=== PATIENT | male | born 1940 | race African-American/Black ===

== ENCOUNTER 2019-09-01 10:48 | Inpatient (IN) | payer OTHER ==
[~2019-09-01] VITALS: Ht 172.7 cm; Wt 59.7 kg
[2019-09-01 10:49] VITALS: BP 178/80
[2019-09-01 12:11] LABS: ABSOLUTE NEUTROPHILS 7.3 thou/uL (1.4-8.2); BASOPHILS 0.2 % (0.0-2.0); EOSINOPHILS 1.6 % (0.0-3.0); HEMOGLOBIN 9.1 gm/dL (14.0-18.0); LYMPHOCYTES 23.1 % (24.0-44.0); MCHC 32.4 g/dL (28.0-37.0); MCV 83.3 fL (80.0-100.0); MONOCYTES 5.3 % (1.0-8.0); PLATELET COUNT 410 thou/uL (150-400); POLYS 69.8 % (36.0-66.0); RBC 3.36 mil/uL (4.50-6.00); RDW 15.2 % (10.5-14.5); WBC 10.5 thou/uL (4.0-11.0)
[2019-09-01 12:17] LABS: CREATININE 1.6 mg/dL (0.7-1.3); POTASSIUM 5.3 mmol/L (3.5-5.1)
[2019-09-01 12:21] LABS: CALCIUM 9.3 mg/dL (8.5-10.1)
--- NOTE | 2019-09-01 12:40 | NUR ---
RADIOLOGY HERE TO TAKE ORDERED EXAM
--- NOTE | 2019-09-01 12:45 | NUR ---
PT. TO ER TODAY WITH HIS DAUGHTER WHO REPORTS PT. HAS BEEN DEMONSTRATING S/S OF DEMENTIA. PT. DAUGHTER INFORMS PT. LIVES WITH HER AT HER HOME. PT. HAS BEEN WAKING EARLY AND TAKING THE BUS TO VARIOUS PLACES. PT. HAS BEEN FOUND WANDERING AND WITHOUT APPROPRIATE CLOTHING FOR THE CURRENT WEATHER. PT. DAUGHTER INFORMS PT. WAS HOSPITALIZED AT [facility] WITH A DX OF PNEUMONIA AND RELEASED. PRIOR TO ARRIVING TO [place], PT. WAS HOSPITALIZED, AND WENT TO REHAB. FOR A CVA, TIMELINE UNKNOWN. PT. DAUGHTER FOUND PT. IN A REHAB./SNF AND BROUGHT HIM TO LIVE WITH HER. PT. DAUGHTER AT THIS TIME IS CONCERNED OVER PT. SAFETY. PT. KNOWS WHO HE IS, AND THAT HE IS IN A HOSPITAL. PT. CANNOT PROVIDE THE DATE,DAY OR TIME OR WHO HIS MD IS AND WHEREABOUTS OF SAID MD. PT. IS APPROPRIATE AT THIS TIME, BUT STAFF HAD TO EMPLOY SECURITY IN ORDER TO OBTAIN BLOOD SPECIMEN. THE STAFF ALSO USED THE GREEK LANGUAGE LINE TO OBTAIN BASELINE MENTAL STATUS IN WHICH COVER MARKER 241991 REPORTED PT. WAS SLIGHTLY CONFUSED/COULD NOT RECALL EVENTS MENTIONED PREVIOUSLY. CURRENTLY, PT. IS ON ER CART IN POSITION OF COMFORT, SIDERAILS UP X 2, FOOD PROVIDED, CALL LIGHT WITHIN REACH. WILL REASSESS ACCORDINGLY.
[2019-09-01 14:29] LABS: URINE BILIRUBIN NEGATIVE (Negative); URINE BLOOD TRACE (Negative); URINE CLARITY CLEAR; URINE COLOR YELLOW; URINE GLUCOSE-RANDOM* NEGATIVE (Negative); URINE KETONES NEGATIVE (Negative); URINE LEUKOCYTES-REFLEX NEGATIVE (Negative); URINE NITRITE-REFLEX NEGATIVE (Negative); URINE PROTEIN (DIPSTICK) 2+ (Negative); URINE UROBILINOGEN 0.2 E.U./dl (0.2-1.0)
[2019-09-01 14:37] LABS: AMP/METHAMP Negative (Negative); BARBITURATES Negative (Negative); BENZODIAZEPINES Negative (Negative); COCAINE Negative (Negative); METHADONE Negative (Negative); OPIATES Negative (Negative); PCP Negative (Negative)
[2019-09-01 14:40] LABS: BACTERIA-REFLEX None Seen /HPF (None Seen); CASTS None Seen /LPF (None Seen); CRYSTALS None Seen /LPF (None Seen); SQUAMOUS 0-3 Few /LPF (0-3); URINE RBC 0-2 Rare /HPF (0-2); URINE WBC-REFLEX None Seen /HPF (0-5)
--- NOTE | 2019-09-01 17:02 | NUR ---
assumed pt care at 1500, pt refuses vital signs and IV-reported to charge nurse.
--- NOTE | 2019-09-01 19:59 | NUR ---
PATIENT SPEAKING IN [place]. PT SAID HIS DAUGTHER DROP HIM OFF HERE. HE ISN'T SURE WHY HE IS HERE. HE THINKS HIS DAUGTHER DROP HIM OFF BECAUSE SHE WANTS TO GET HIS SOCIAL SECURITY CHECK AND MONEY. REORIENTED TO PLACE. PT ORIENTED TO PERSON, MONTH AND PLACE. PT DENIED PAIN OR SOA.
[2019-09-01 22:28] VITALS: BP 174/84
[2019-09-01 22:51] VITALS: BP 189/97
[2019-09-02 01:11] VITALS: BP 173/97
--- NOTE | 2019-09-02 01:21 | NUR ---
The pt. arrived for admission from the ED, where his daughter had brought him in there. He is primarily Maori speaking. His daughter stated that he recently began waking up extremely early and wanders off. She is unable to find his wherabouts and the police have been involved. He wanders off without enough clothing on. He was found a couple weeks ago at [facility] [place] where he fell down concrete steps. He lives with his daughter. He moved here from [place]. He is alert to name, place and month. He answered questions in the ED with "I have a Doctor. I have a clinic and I was brought here by force." He was easily agitated and refused blood draw. He also said his daughter dropped him off here. Isn't sure why he is here. He thinks his daughter dropped him off because she wants to get his Social Security check and money. He has hx. CVA per daughter then he was at rehab, all prior to arriving in [place]. IV inititally, had Haldol 5 mg. IM, and 1 L Normal Saline in ED.
--- NOTE | 2019-09-02 05:41 | NUR ---
He used the urinal once in his bed and his lanyard with "house richmond" was taken and explained to him it was going to be locked up, which it is in the unit locker. He has been sleeping soundly with the cover over his head since using urinal.
--- NOTE | 2019-09-02 06:47 | NUR ---
Pt. used the urinal in the nite independently. Lab personnel went to see the pt. and he ademently refused shouting at her. He returned to sleep. He refused the repeat blood pressure check in the nite. No c.o. pain, shortness of breath, or headach.
[2019-09-02 07:00] VITALS: BP 158/87
[2019-09-02 08:32] LABS: % SATURATION 35 % (20-39); IRON 104 ug/dL (65-175); TIBC 293 ug/dL (250-450)
[2019-09-02 09:32] LABS: FOLIC ACID 18.3 ng/mL (8.6-58.9); TSH 0.549 uIU/mL (0.358-3.740)
--- NOTE | 2019-09-02 11:53 | NUR ---
Nutrition: Assessed due to low Aime score of 11. Admit: AMS, agitation, TOÑO, dehydration, hyperkalemia. Met with pt in day area briefly before lunch. He speaks very little Finnish, but some broken Finnish. He was able to state if food is in front of him, he typically eats very well. Wt at 130# places him at a healthy BMI of 19.8 kg/m2. Could benefit from some slight wt gain too. Pt unable to indicate whether he lost wt or not. Informed him we would monitor his meal intakes closely to help minimize chance for wt loss. Spoke w/ RN on [facility] unit too who reports pt ate nearly all or all of breakfast; good eater described. Elevated BG indicated per provider notes (A1c pending) - SSI available per med list if appropriate. Folate, B12, ferritin all WNL. No meal intakes yet available d/t newly admitted. Will follow for PO trends and weekly wt checks. Otherwise low nutrition risk at present.
--- NOTE | 2019-09-02 14:20 | NUR ---
0702 Report received from overnight shift, Patient has been calm took medication without incidence. Patient does not participate in groups, or talks with peers. No aggression.
--- NOTE | 2019-09-02 16:08 | NUR ---
1600 Patient refused to let lab draw his blood.
--- NOTE | 2019-09-02 16:31 | NUR ---
Sw spoke with pt's daughter to complete the assessmnenbt and she stated that she wants her father to stay in the home with her. she works at [employer]. Pt would benefit from adult day care, or medicaid at home assistance. Sw will assist as needed. family meeting set up for 12;30pm on thursday 09/06.
[2019-09-02 17:01] LABS: HEMATOCRIT 27.7 % (42.0-52.0); HEMOGLOBIN 9.1 gm/dL (14.0-18.0); MCH 26.9 pg (26.0-34.0); MCHC 32.9 g/dL (28.0-37.0); MCV 81.8 fL (80.0-100.0); RBC 3.39 mil/uL (4.50-6.00); RDW 15.2 % (10.5-14.5); WBC 9.1 thou/uL (4.0-11.0)
[2019-09-02 17:10] LABS: CALCIUM 9.9 mg/dL (8.5-10.1); CREATININE 1.8 mg/dL (0.7-1.3); MAGNESIUM 1.9 mg/dL (1.8-2.4); POTASSIUM 4.7 mmol/L (3.5-5.1)
[2019-09-02 20:12] VITALS: BP 194/81
[2019-09-03 00:07] LABS: GLYCOHEMOGLOBIN (HGB A1C) 6.9 % (4.8-5.6)
[2019-09-03 00:13] VITALS: BP 194/81
--- NOTE | 2019-09-03 03:46 | NUR ---
PT CALM AND COOPERATIVE AT CHANGE OF SHIFT. AFTER SNACKS TOOK HS MEDS W/O PROBLEM. BS 176, RECEIVED 3u INSULIN. SMILING AND ABLE TO COMMUNICATE NEEDS TO STAFF. ALLOWED ASSESSMENT AND VS W/O COMPLAINT. SLEPT WELL THROUGH THE NIGHT TO THIS POINT.
[2019-09-03 07:20] VITALS: BP 170/95
--- NOTE | 2019-09-03 11:58 | NUR ---
05 Report received from overnight shift, Patient cooperative, calm, patient ate breakfast took medication without incidence. Patient refused FLU Vaccine.
[2019-09-03 20:19] VITALS: BP 188/92
[2019-09-04 00:19] VITALS: BP 188/92
--- NOTE | 2019-09-04 03:05 | NUR ---
PT HAS BEEN MOSTLY ISOLATIVE TO ROOM. ALLOWED PHYSICAL ASESSMENT AND AFTER EVENING SNACKS TOOK HS MEDS PRESCRIBED. MOOD IS SURLY BUT WITH GENTLE ENCOURAGMENT HAS BEEN COOPERATIVE. PT HAS SLEPT WELL THROUGH THE NIGHT TO THIS POINT IN THE AM.
[2019-09-04 07:13] VITALS: BP 150/79
[2019-09-04 08:00] VITALS: BP 150/79
[2019-09-04 08:08] LABS: ABSOLUTE NEUTROPHILS 6.1 thou/uL (1.4-8.2); BASOPHILS 0.5 % (0.0-2.0); EOSINOPHILS 1.3 % (0.0-3.0); HEMATOCRIT 26.5 % (42.0-52.0); HEMOGLOBIN 8.8 gm/dL (14.0-18.0); LYMPHOCYTES 9.1 % (24.0-44.0); MCH 27.4 pg (26.0-34.0); MCHC 33.3 g/dL (28.0-37.0); MCV 82.3 fL (80.0-100.0); MONOCYTES 5.7 % (1.0-8.0); PLATELET COUNT 334 thou/uL (150-400); POLYS 83.4 % (36.0-66.0); RBC 3.22 mil/uL (4.50-6.00); WBC 7.3 thou/uL (4.0-11.0)
[2019-09-04 08:17] LABS: CALCIUM 9.6 mg/dL (8.5-10.1); CREATININE 1.9 mg/dL (0.7-1.3); MAGNESIUM 1.7 mg/dL (1.8-2.4)
--- NOTE | 2019-09-04 12:00 | NUR ---
PT EATING LUNCH. PT TOOK MEDS. PT LOOKED GRUMPY IN THE FACE AFTER EATING.
--- NOTE | 2019-09-04 14:37 | NUR ---
DR. TAFOYA SPOKE TO PT ABOUT GETTING KAYEXALATE AND IV FLUIDS TO HELP DECREASE K LEVEL. PT STATED HE DIDN'T WANT TO TAKE MEDICATION OR HAVE IV FLUIDS WHEN THIS NURSE APPROACHED HIM.
--- NOTE | 2019-09-04 14:56 | NUR ---
CALLED DR. TAFOYA AND HE TALKED TO PT ABOUT NEEDING MEDICATION TO HELP BRING DOWN HIS K LEVEL. WILL CHANGE KAEXALATE MED TO SOMETHING ELSE. PT DOES NEED IV INSULIN AND GLUCOSE.
--- NOTE | 2019-09-04 15:20 | NUR ---
PT REFUSING IV INSERTION AT THIS TIME. WILL TRY NEW MED ORDER TO DECREASE K LEVEL.
--- NOTE | 2019-09-04 16:52 | NUR ---
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 PT STATED TO INDUSTRIAL MAINTENANCE TECHNICIAN THAT HE WOULD TAKE MED. PT TALKED TO INDUSTRIAL MAINTENANCE TECHNICIAN ON THE PHONE AND PT AGREED TO TAKE THE VELTASSA. PT WAS TOLD ABOUT LAB DRAW AT 1999, HE WAS NOT ACCEPTANCE OF THE LAB DRAW EITHER.
--- NOTE | 2019-09-04 17:06 | NUR ---
NOTIFIED DR. TAFOYA THAT PT TOOK VALTESSA POWDER. DR. KRAFT.
[2019-09-04 20:48] VITALS: BP 161/73
--- NOTE | 2019-09-04 21:40 | NUR ---
PATIENT IN BED AT BEGINNING OF HS SHIFT. PATIENT GOT UP AT 1999 AND HAD A BM IN HIS BATHROOM. LAB WAS HERE TO DRAW A BMP TO CHECK AND SEE IF POTASSIUM LEVELS ARE COMING DOWN FROM 6. THIS NURSE CALLED BACK GRINDER SERVICES AND USED LEAD FIRE PROTECTION ENGINEER TO SPEAK WITH PATIENT WHO WAS AWAKE AT THIS TIME. HE SAID HE HAD TAKEN MEDS ALL DAY LONG AND BEEN STUCK ALOT ALL DAY AND HE WAS NOT HAVING ANY OF IT. I EXPLAINED SIMPLY THAT HIS POTASSIUM HAD BEEN HIGH AND IT COULD CAUSE PROBLEMS WITH HIS HEART AND COULD POSSIBLY IF NOT CORRECTED. HE SAID, "GO AHEAD AND LET ME . I DON'T CARE! I'M TIRED OF BEING HERE AND GOING THROUGH ALL THESE THINGS!" HE WOULD NOT ANSWER MY QUESTION THRU THE BACK GRINDER IF HE WAS HAVING ANY PAIN OR NOT. HE WENT SILENT AND CLOSED HIS EYES. HE REFUSED ALL HIS HS MEDS AND EARLIER REFUSED THE WEB CONTENT DEVELOPER WHEN SHE WENT TO DO HIS ACCUCHECK TO CHECK HIS GLUCOSE LEVEL. HIS BP WAS 161/73. HIS HALDOL AND DEPAKOTE WERE IN HIS HS MEDS HE REFUSED. I CALLED ASHA JASSO AND ALERTED HIM OF ALL THE ABOVE. NEW ORDER TO CHECK BMP IN MORNING AT 0800. PATIENT SLEEPING AT THIS TIME.
[2019-09-04 23:08] VITALS: BP 161/73
[2019-09-05 08:00] VITALS: BP 180/81
--- NOTE | 2019-09-05 08:03 | NUR ---
PT REFUSING TO HAVE LAB DRAW. NEEDED ASSISTANCE FROM STAFF TO GET BLOOD DRAW.
[2019-09-05 08:24] LABS: CALCIUM 9.5 mg/dL (8.5-10.1); CREATININE 2.1 mg/dL (0.7-1.3); POTASSIUM 5.4 mmol/L (3.5-5.1)
[2019-09-05 08:30] VITALS: BP 180/81
--- NOTE | 2019-09-05 08:40 | NUR ---
PT REFUSING ALL MEDS THIS AM. PT DID EAT BREAKFAST.
--- NOTE | 2019-09-05 10:11 | NUR ---
[facility] HELICOPTER PILOT ATTEMPTED TO USE TAMAZIGHT INTERPRETOR TO TALK TO PT. PT STATED WHY ARE YOU USING INTERPRETOR, PT REFUSING TO TALK TO THE INTERPRETOR ABOUT HOW HE FEELS AND IF HE WILL TAKE BP MED AND POWDER FOR K. PT NOT ANSWERING.
--- NOTE | 2019-09-05 14:35 | H ---
[facility] [place] [address] HISTORY AND PHYSICAL Name: TAMEKA GARCIA Room #: 519B-B ADM IN M.R.#: [id number] Admission: 09/01/19 Attend Phys: Dandy Franz DO Discharge: Date of : 40 Report #: [id number] THIS REPORT FOR: //name// CC: Dadny Franz [facility] physician/PCP NO PCP DATE OF SERVICE: 09/01/2019 INPATIENT PSYCHIATRIC EVALUATION ATTENDING PHYSICIAN: Dandy Franz DO. SENIOR PREMIUM AUDITOR: Ratna Aguilar. REASON FOR ADMISSION: Self-care failure, combativeness with daughter HISTORY OF PRESENT ILLNESS: This is a 79-year-old black male, [place] of [place], who participated in the [place] [employer] [place] from [place] to [facility]. The patient has been living with his daughter, Celeste Garcia and after and after coming to her home a year ago and she does think he has early stages of dementia. wakes up early every day morning trying to leave barely any clothing on. He leaves water running. He leaves stool on. He will wet his pants and say that he did not and is very confused. He is combative. I just wanted him to be safe. I am very concerned about his health. He was recently found on the streets with pneumonia. In the Emergency Room, he stated he was brought to the ED by force and he does not know why he is currently here. Several weeks ago, he was found ____ where he fell down on concrete steps. Daughter reported pneumonia diagnosed and was admitted to research for 2 weeks. Discharged last week and has not established a PCP. He believes he has a PCP, but cannot recall the name. He reported he has not been clinically diagnosed. ALLERGIES: No known allergies. PAST MEDICAL HISTORY: Stroke and pneumonia, stroke occurred in [place]. Daughter states she brought him up from [place]. REVIEW OF SYSTEMS: From the ER, CONSTITUTIONAL: Denies fever, chills, malaise or unexpected weight change. EYES: Denies eye pain, visual change or discharge. HENT: Denies hearing changes, ear drainage, ear infections, ear pain, neck pain or neck stiffness. RESPIRATORY: Denies cough, shortness of breath, hemoptysis or respiratory distress. [address] [address] HISTORY AND PHYSICAL Name: TAMEKA GARCIA Room #: 519B-B ADM IN M.R.#: [id number] Admission: 09/01/19 Attend Phys: Dandy Franz DO Discharge: Date of : 40 Report #: [id number] CARDIOVASCULAR: Denies chest pain, chest pain with exertion or edema. GASTROINTESTINAL: Denies abdominal pain, nausea, vomiting or diarrhea. GENITOURINARY: Denies burning, dysuria or frequency. MUSCULOSKELETAL: Denies back pain, joint pain, muscle weakness or myalgias. SKIN: Denies rash. NEUROLOGIC: Denies weakness, headache, loss of consciousness. Otherwise, 10-point review was negative. PHYSICAL EXAMINATION: In the ER grossly normal looking in the chart. LABORATORY DATA: Sodium 142, potassium 5.3, chloride 109, bicarbonate 22, BUN 35, creatinine 1.6, glucose 216, calcium 9.3, white count 10.5, H and H 9.1 and 28.0, platelet count 410. Serum alcohol less than 10. Chest x-ray showed mild perihilar fullness may represent adenopathy. Ectasia was present ____ atelectasis present in the left lower lung. He was given Haldol in the ER as well as IV fluids. VITAL SIGNS: Today, temperature 37.3, pulse 92, respirations 18, BP 158/87. He ambulateed independently with walker last night. I do not have exact sleep hours. MUSCULOSKELETAL: Seated in a chair. Gait not tested. He can ambulate short distances. MENTAL STATUS EXAMINATION: This is a well-developed, thin, black male, bit disheveled. Attention limited. Concentration limited. Speech is normal rate. Thought process is linear and goal directed stating his doctor will come to him tomorrow. Slight psychomotor agitation. No psychomotor retardation. Denied SI or HI. Denied hopelessness, helplessness and homicidal intent or plan. Memory noted to be impaired. He did recall me from the ER. Insight limited. Judgment limited. Fund of knowledge below average. FORMULATION: A 79-year-old black male I admitted for combativeness due to dementia. CURRENT MEDICATIONS: Ordered, amlodipine 5 mg p.o. daily for hypertension, insulin Humalog a.c. and at bedtime, sliding scale, famotidine 20 mg daily, docusate 100 mg b.i.d. We will plan to start him on Haldol 2.5 mg twice a day, Depakote ER 1000 mg for mood stabilization. Risks, benefits, alternatives discussed. ASSESSMENT: Major neurocognitive disorder, likely due to cerebrovascular disease with behavioral disturbance. [facility] [address] [place] [address] HISTORY AND PHYSICAL Name: TAMEKA GARCIA Room #: 519B-B ADM IN M.R.#: [id number] Admission: 09/01/19 Attend Phys: Dandy Franz DO Discharge: Date of : 40 Report #: [id number] Plan: Evaluate and Stabilize Starte Depakote 1000 mg po qhs ER Start Haldol 2.5 mg po bid Monitor response to mileu and medications. Daughter wants patient to retunr to her [place] ESTIMATED LENGTH OF STAY: 10-14 days. STRENGTHS: He has supportive family. WEAKNESSES: Questionable insurance, neurodegenerative disorder with limited resources. Time spent on interview, review of records, coordination of care of this patient is at least 45 minutes. <ELECTRONICALLY SIGNED> By: Dandy Franz DO 09/05/19 1435 [id number] Dandy Franz DO /nt
[2019-09-05 15:00] VITALS: BP 157/68
--- NOTE | 2019-09-05 16:00 | NUR ---
PT WAS SLEEPING THIS AFTERNOON. PT REFUSED HYDROLAZINE MED, PT STATED WHAT NOW. PT WENT BACK TO SLEEP. PT BP TAKEN 157/68, 68.
[2019-09-05 20:21] VITALS: BP 172/85
[2019-09-06 00:23] VITALS: BP 172/85
--- NOTE | 2019-09-06 00:35 | NUR ---
PATIENT UP WITH WALKER THIS EVENING TO DINING ROOM AND BACK TO ROOM. PATIENT VERY DEFENSIVE WHEN APPROACHED TO INTRODUCE MYSELF AND STARTED SAYING NO, NO NO. HE KEPT SHUTTING HIS BEDROOM DOOR AND THIS NURSE KEPT OPENING IT. HE WAS MAD AND ANGRY AND YELLING AT NURSE. THIS NURSE, CALMLY SAID LET ME TALK WITH YOU. HE CALMED DOWN LONG ENOUGH TO LISTEN AND THEN SAID THAT HE THINKS PEOPLE ARE OUT TO KILL HIM BY GIVING HIM ALL THESE MEDS. EXPLAINED THAT WE ARE HERE TO HELP HIM. HE STILL REFUSED ALL HIS MEDS BUT WE DID WORK OUT A COMPROMISE ON LEAVING HIS DOOR SLIGHTLY OPENED TONIGHT. PATIENT'S B/P WAS 172/85. NOTIFIED ASHA JASSO OF REFUSAL OF HIS MEDS AND B/P. DAVI STATES THAT A MEETING WITH PATIENT'S DAUGHTER IS OCCURING 09/06/19 TO DISCUSS HIS REFUSAL OF CARE AND WHERE TO GO FROM HERE. PATIENT WENT TO BED AND IS SLEEPING NOW. HE DOES GET UP AND TAKE HIMSELF TO THE BATHROOM AT NIGHT. HE HAS STEADY GAIT WITH HIS WALKER.
[2019-09-06 10:10] LABS: HEMATOCRIT 28.6 % (42.0-52.0); HEMOGLOBIN 9.3 gm/dL (14.0-18.0); MCH 26.8 pg (26.0-34.0); MCHC 32.5 g/dL (28.0-37.0); MCV 82.5 fL (80.0-100.0); RBC 3.47 mil/uL (4.50-6.00); RDW 14.8 % (10.5-14.5); WBC 5.8 thou/uL (4.0-11.0)
[2019-09-06 10:31] LABS: ALBUMIN 3.3 g/dL (3.4-5.0); CALCIUM 9.8 mg/dL (8.5-10.1); CREATININE 2.1 mg/dL (0.7-1.3); MAGNESIUM 1.5 mg/dL (1.8-2.4); POTASSIUM 4.4 mmol/L (3.5-5.1); TOTAL BILIRUBIN 0.2 mg/dL (<0.1-1.0); TOTAL PROTEIN 7.9 g/dL (6.4-8.2)
[2019-09-06 11:51] VITALS: BP 185/86
[2019-09-06 22:40] VITALS: BP 118/68
--- NOTE | 2019-09-07 03:33 | NUR ---
PT ISOLATING IN ROOM. TOOK HS MEDS WITH ENCOURAGEMENT. REMAINS QUIET AND GENERALLY COOPERATIVE. HAS SLEPT WELL THROUGH THE NIGHT TO THIS POINT.
--- NOTE | 2019-09-07 08:42 | NUR ---
JASSI met with dght, pt, community health outreach worker and Dr sutherland to discuss d/c plans. Pt has a HX of wandering off and has limited safety awareness. [facility] has attempted to accomodate his impulsivity but now has concerns. It was also mentioned that he is non complaint with his medications and has several comordities that need better medical treatment. Pt has an option to return to his dght's home or be placed in an AL or NH. [facility] butwould prefer to move to [place]. [facility] explained that there are no resources for him in [place]. D/c will likely happen later this week.
[2019-09-07 10:51] VITALS: BP 118/68
--- NOTE | 2019-09-08 05:41 | NUR ---
1909-[facility] He was compliant with HS meds., isolative, independent using the walker, and slept well tonite. Flat affect and not anxious. This morning though he shouted at the quality assurance lab technician. and refused his lab testing. He had no c.o pain and no c.o. voiced this shift.
[2019-09-08 09:36] VITALS: BP 155/84
[2019-09-08 13:16] VITALS: BP 155/84
--- NOTE | 2019-09-08 13:40 | NUR ---
Date of Admission: 09/01/19 Date of Activity Therapy Assessment: 09/04/19 Activity Goal: Increase orientation and structure Initial Goal: 1 Group activity/day Weekly progress towards goal: Did not achieve goals Group participation level: Needs some assistance Behaviors observed: Patient has not actively participated in group since admititng to [facility]. Patient is often on the sidelines during groups, observing only. His language barrier likely limits participation as well. Plan: No change towards goal
[2019-09-08 14:00] VITALS: BP 164/89
--- NOTE | 2019-09-08 15:23 | NUR ---
0700 Assumed care this morning. Pt alert and oriented. Pt refused to take breakfast he had orange juice only. Hesitated to take medication this morning but entually took. He like orange juice with meds. 1200 pericare done. patient calm. Had his lunch and went to the room there after. 1400 Pt agrees for BP check and BP medication was administered with no issue. Resting in his room at this moment.Will continue to monitor.
[2019-09-08 20:10] VITALS: BP 175/75
--- NOTE | 2019-09-09 06:04 | NUR ---
1909-Report received and care assumed last evening. He was quiet, alert, was VS and med. compliant last nite, with encouragement. Refused to give a urine specimen. Quiet in the nite, drank juices per his request. Slept 10.8 hours.
[2019-09-09 07:42] VITALS: BP 175/75
--- NOTE | 2019-09-09 07:45 | NUR ---
SW spoke with pt's dght and she will pick pt up at 12:30pm today. This was reported to nursing and Dr sutherland.
[2019-09-09 09:24] VITALS: BP 140/76
[2019-09-09] MEDS ORDERED: HYDRALAZINE 2525 MG PO (10:11)
[2019-09-09] MEDS ORDERED: AMLODIPINE BESY10 MG PO (10:12)
[2019-09-09] MEDS ORDERED: HALOPERIDOL 5 MG5 MG PO (10:12)
[2019-09-09] MEDS ORDERED: COLACE100 MG PO (10:13)
[2019-09-09] MEDS ORDERED: PEPCID20 MG PO (10:13)
[2019-09-09] MEDS ORDERED: VELTASSA8.4 GM PO (10:13)
[2019-09-09] MEDS ORDERED: SENNA-TIME S T1 EACH PO (10:13)
--- NOTE | 2019-09-09 12:50 | NUR ---
Alert and ambulating around unit without s/o distress. Difficult to communicate d/t language barrier. Refusing AM meds, Dr. Franz aware. On third attempt, agreed to take hydralizine and famotidine with use of instrumentation and controls technician. Continues to refuse all other meds and complete assessment. Dr. Franz also aware that patient in noncompliant with attempts to obtain UA. Denies SI/HI/pain via instrumentation and controls technician with Dr. Franz questioning. Breath sounds clear t/o, bilaterally equal. Color pink with brisk capillary refill and palpable peripheral pulses +3/+4. Refuses to allow me to remove shoes, lift pants to assess edema or skin. Reg HR auscultated. Refuses repeat BP to assess prior to discharge. Active bowel sounds over soft, rounded abdomen. Plan on discharge today to daughter's care.
[2019-09-09 14:10] VITALS: BP 175/75
--- NOTE | 2019-09-09 15:02 | NUR ---
SW assisted pt and ju with filling out the DPOA paperwork. This included having it notarized. Pt was explained this using a stake setter.
--- NOTE | 2019-09-12 11:07 | D ---
[facility] [place] [address] DISCHARGE SUMMARY Name: TAMEKA GARCIA Room #: 519B-B DIS IN M.R.#: [id number] Admission: 09/01/19 Attend Phys: Dandy Franz DO Discharge: 09/09/19 Date of : 40 Report #: [id number] THIS REPORT FOR: //name// CC: Dandy Franz [facility] physician/PCP NO PCP DATE OF SERVICE: 09/09/2019 INPATIENT PSYCHIATRIC EVALUATION ATTENDING PHYSICIAN: Dandy Franz DO. SUPERINTENDENT CONTAINER TERMINAL AT THE TIME OF DISCHARGE: Yang Hargrove MD DISCHARGE DIAGNOSES: Major neurocognitive disorder, likely due to cerebrovascular disease with behavioral disturbance, modest improvement. Comorbidities are multiple including hypertension on hydralazine; hyperkalemia, on Veltassa; acute on chronic renal failure; diabetes mellitus type 2; anemia of chronic disease; GI prophylaxis. DISCHARGE PLAN: He is discharging to go home with his daughter, Michelle. The patient has been oppositional. He is currently taking haloperidol 5 mg twice a day. Asisde from this he is more of a comfort care situation as there are not resources fro placement and daughter does not desire it. diet : regular at this point DISCHARGE MEDICATIONS: He is given a 30-day prescription for hydralazine 25 mg p.o. 3 times a day, amlodipine 10 mg p.o. daily again for hypertension, Veltassa 8.4 grams p.o. daily, docusate sodium 100 mg p.o. b.i.d. for constipation, senna-S 1 tab p.o. daily, famotidine 20 mg p.o. daily for GERD. The patient will need to get an intake for psychiatric followup with [facility]. I gave verbal instructions to his daughter for this. LABORATORY DATA: This admission are as follows: on 09/06/2019 white count 5.8, H and H 7.3 and 28.6, platelet count 316. Chemistries on 09/06/2019, sodium 136, potassium 4.4, chloride 103, bicarbonate 21, anion gap 12, BUN 42, creatinine 2.1, estimated GFR 37, glucose 228. Urinalysis showed 2+ protein, trace blood, negative for leukocyte esterase. Toxicology, negative drug screen and serum alcohol less than 10. The patient will require 26/05 assistance and supervision due to a degree of his dementia. [address] [address] DISCHARGE SUMMARY Name: TAMEKA GARCIA Room #: 519B-B [facility] IN ..#: [id number] Admission: 09/01/19 Attend Phys: Dandy Franz, Discharge: 09/09/19 Date of : 40 Report #: [id number] REASON FOR ADMISSION: On 09/01/2019, a 79-year-old male brought to the ED for altered mental status. He had been wandering, difficult to redirect, incontinent of urine memory loss. HOSPITAL COURSE: The patient was admitted to Geriatric Psychiatry Unit. The patient was generally poorly compliant with treatment unfortunately, it became clear on admission, [facility] placed there. His daughter expressed understanding not being placed in a prison and wanted time to care for him at home. renal ultrasound and negative chest x-ray. PHYSICAL EXAMINATION: VITAL SIGNS: On the day of discharge, temperature 36.7, pulse 80, respirations 18, BP 115/75, due to patient's blood pressure medication. Normal station, slow gait. MENTAL STATUS EXAMINATION: This is a well-developed, black male [place]. Attention limited. Concentration limited. Speech is normal rate. Thought process, thought content were difficult to ascertain due to language barrier. Memory not formally tested. Insight limited. Judgment limited. Denied SI, HI. Denies hopelessness, helplessness. Denies SI/HI. . PROGNOSIS: Poor, given limited resources and the degree of patient's dementia. <ELECTRONICALLY SIGNED> By: Dandy Franz DO 09/12/19 1107 [id number] Dandy Franz DO /nt
--- NOTE | 2019-09-14 06:24 | HC ---
[facility] [place] [address] CONSULTATION Name: TAMEKA GARCIA Room #: 519B-B [facility] IN M.R.#: [id number] Admission: 09/01/19 Attend Phys: Dandy Franz DO Discharge: 09/09/19 Date of : 40 Report #: [id number] THIS REPORT FOR: //name// CC: Dandy Franz [facility] physician/PCP NO PCP REASON FOR CONSULTATION: Elevated creatinine. REASON FOR PRESENTATION: Mental status changes. HISTORY OF PRESENT ILLNESS: The details of the history are obtained from the medical chart. The patient has very poor insight and is not able to provide me with any of his medical history. He is a 79-year-old with remote history of CVA, who was brought to the hospital because of acute mental status changes and confusion. He was admitted to the Behavioral Unit, where he was found to have an elevated creatinine. He is currently being seen by the hospitalist team. Looks like that the patient has been in another facility for a couple of weeks. Family does not recall that they were told he has kidney problems. The patient used to live in [place], where he had a stroke event. Daughter is here in town and the patient is supposed to have some living arrangement here in town. In terms of renal function, we do not have any previous baseline on the patient. There is no history of diabetes mellitus. The patient is currently maintained on blood pressure medication. He has some issues with hyperkalemia, but this seemed to have resolved. PAST MEDICAL HISTORY: Apparently, the patient had stroke, there is a potential diagnosis of hypertension, unable to confirm given the patient's mental status. PAST SURGICAL HISTORY: Unable to maintain given the patient's mental status. ALLERGIES: There are no listed allergies. SOCIAL HISTORY: Unable to obtain given the patient's mental status. REVIEW OF SYSTEMS: Completely unobtainable given the patient's mental status. FAMILY HISTORY: Unable to obtain given the patient's mental status. PHYSICAL EXAMINATION: VITAL SIGNS: Blood pressure is 175/75. There are some reported readings of 119/70. HEAD AND NECK: No jugular venous distention. CHEST: No crackles. CARDIOVASCULAR: No rub. ABDOMEN: Soft, nontender. EXTREMITIES: Lower extremities, no edema. [facility] [address] [place] [address] CONSULTATION Name: TAMEKA GARCIA Room #: 519B-B [facility] IN ..#: [id number] Admission: 09/01/19 Attend Phys: Dandy Franz DO Discharge: 09/09/19 Date of : 40 Report #: [id number] LABORATORY VALUES: Reviewed. Creatinine had been around 2.1 in the last couple of days; however, it was 1.6 on presentation. IMPRESSION AND PLAN: 1. Poorly controlled hypertension with recent appropriate control; however, precipitous drop in his blood pressure contributing to arising creatinine. 2. Acute kidney injury. 3. Chronic kidney disease. 4. Proteinuria. 5. Ongoing behavioral issues. 6. Recent rise in the patient's creatinine is explained by the precipitous drop in his blood pressure. At this point, the patient is currently maintained on hydralazine and Norvasc. 7. Creatinine seems to have stabilized. 8. Hyperkalemia had resolved with the initiation of Veltassa. 9. Encourage fluid intake. 10. Monitor renal function. <ELECTRONICALLY SIGNED> By: Alexandro Dimas MD 09/14[birth year]1924 0736 3 Alexandro Dimas MD /nt
== END 2019-09-09 13:30 | disposition home or self-care (01) | DRG 884 ==
LOC: ER 10:48 → SBH 13:44 → EROBS 13:44 → SBH 13:44
PROVIDERS: Emergency Medicine; Internal Medicine; Nurse Practitioner; Nurse Practitioner Acute Care; Nurse Practitioner Psychiatric/Mental Health; ADMIT Psychiatry & Neurology Psychiatry
DX: F01.51 Vascular dementia, unspecified severity, with behavioral disturbance (principal); N17.9 Acute kidney failure, unspecified; E86.0 Dehydration; I12.9 Hypertensive chronic kidney disease with stage 1 through stage 4 chronic kidney disease, or unspecified chronic kidney disease; N18.9 Chronic kidney disease, unspecified; E87.5 Hyperkalemia; E11.22 Type 2 diabetes mellitus with diabetic chronic kidney disease; D63.8 Anemia in other chronic diseases classified elsewhere; K59.00 Constipation, unspecified; K21.9 Gastro-esophageal reflux disease without esophagitis; I69.918 Other symptoms and signs involving cognitive functions following unspecified cerebrovascular disease; E11.65 Type 2 diabetes mellitus with hyperglycemia; Z87.01 Personal history of pneumonia (recurrent); Z23 Encounter for immunization
CPT/HCPCS: 10880

== ENCOUNTER 2020-02-25 15:54 | Emergency (ER) | payer OTHER ==
[~2020-02-25] VITALS: Ht 170.2 cm; Wt 72.6 kg
[~2020-02-25 15:54] MED LIST: AMLODIPINE BESY10 MG PO; COLACE100 MG PO; HALOPERIDOL 5 MG5 MG PO; HYDRALAZINE 2525 MG PO; PEPCID20 MG PO; SENNA-TIME S T1 EACH PO; VELTASSA8.4 GM PO
[2020-02-25 16:51] LABS: ABSOLUTE NEUTROPHILS 4.8 thou/uL (1.4-8.2); BASOPHILS 1.4 % (0.0-2.0); EOSINOPHILS 1.3 % (0.0-3.0); HEMATOCRIT 33.8 % (42.0-52.0); HEMOGLOBIN 11.2 gm/dL (14.0-18.0); LYMPHOCYTES 24.7 % (24.0-44.0); MCH 26.9 pg (26.0-34.0); MCHC 33.2 g/dL (28.0-37.0); MCV 81.1 fL (80.0-100.0); MONOCYTES 5.2 % (1.0-8.0); PLATELET COUNT 211 thou/uL (150-400); POLYS 67.4 % (36.0-66.0); RBC 4.17 mil/uL (4.50-6.00); RDW 15.8 % (10.5-14.5); WBC 7.1 thou/uL (4.0-11.0)
[2020-02-25 16:59] LABS: ANION GAP 12 mmol/L (7-16); BUN 54 mg/dL (7-18); CALCIUM 9.5 mg/dL (8.5-10.1); CHLORIDE 109 mmol/L (98-107); CO2 20 mmol/L (21-32); CREATININE 2.1 mg/dL (0.7-1.3); GLUCOSE 92 mg/dL (74-106); POTASSIUM 5.6 mmol/L (3.5-5.1); SODIUM 141 mmol/L (136-145)
[2020-02-25 17:05] LABS: ALBUMIN 4.4 g/dL (3.4-5.0); SALICYLATE < 2.8 mg/dL (2.8-20.0); SGOT 14 U/L (15-37); SGPT 16 U/L (30-65); TOTAL BILIRUBIN 0.2 mg/dL (<0.1-1.0); TOTAL PROTEIN 8.8 g/dL (6.4-8.2)
[2020-02-25] MEDS ORDERED: ACETAMINOPHEN500 M1 PO (17:46)
[2020-02-25 17:52] LABS: URINE BILIRUBIN NEGATIVE (Negative); URINE BLOOD NEGATIVE (Negative); URINE CLARITY CLEAR; URINE COLOR YELLOW; URINE GLUCOSE-RANDOM* NEGATIVE (Negative); URINE KETONES NEGATIVE (Negative); URINE LEUKOCYTES-REFLEX NEGATIVE (Negative); URINE NITRITE-REFLEX NEGATIVE (Negative); URINE PROTEIN (DIPSTICK) 2+ (Negative); URINE SPECIFIC GRAVITY 1.025 (1.005-1.035); URINE UROBILINOGEN 0.2 E.U./dl (0.2-1.0)
[2020-02-25 18:06] LABS: AMP/METHAMP Negative (Negative); BARBITURATES Negative (Negative); BENZODIAZEPINES Negative (Negative); COCAINE Negative (Negative); METHADONE Negative (Negative); OPIATES Negative (Negative); PCP Negative (Negative)
[2020-02-25 18:09] LABS: BACTERIA-REFLEX None Seen /HPF (None Seen); CRYSTALS None Seen /LPF (None Seen); HYALINE CASTS 0-3 Few /LPF (None Seen); SQUAMOUS 0-3 Few /LPF (0-3); URINE RBC None Seen /HPF (0-2); URINE WBC-REFLEX None Seen /HPF (0-5)
[2020-02-25 20:04] VITALS: BP 191/107
--- NOTE | 2020-02-26 11:54 | EKG ---
[facility] [place] [address] ELECTROCARDIOGRAM REPORT Name: GARCIATAMEKA KING Room #: [facility]P [facility].#: [id number] Admission: 02/25/20 Attend Phys: Discharge: 02/25/20 Date of : 40 Report #: [id number] THIS REPORT FOR: cc: Maria Guadalupe Harrell MD, Malathi MD Couchonnal,Jamari Jama MD ~ THIS REPORT FOR: //name// [facility] ED Test Date: 2020-02-25 Test Time: 16:55:44 Pat Name: TAMEKA GARCIA Department: Room: Gender: [employer] Associate: cynthia : 1940 Requested By: Kathia Rivera Order Number: [id number] MD: Jamari Lester Measurements Intervals [place] Rate: 69 P: 5 W[place]: 141 QRS: 16 QRSD: 109 T: 129 QT: 390 QTc: 418 Interpretive Statements Sinus rhythm RSR' in V1 or V2, right VCD or RVH LVH with secondary repolarization abnormality Anterior ST elevation, probably due to LVH No previous ECG available for comparison Electronically Signed On 02-26-2020 11:53:05 CDT by Jamari Lester [email or web address] <ELECTRONICALLY SIGNED> By: Jamari Lester MD 02/26/20 1153 1655 1655 Jamari Lester MD /EPI
== END 2020-02-25 20:05 ==
LOC: ER 15:54
PROVIDERS: Physician Assistant
DX: R45.1 Restlessness and agitation (principal); F01.50 Vascular dementia, unspecified severity, without behavioral disturbance, psychotic disturbance, mood disturbance, and anxiety; I10 Essential (primary) hypertension; Z86.73 Personal history of transient ischemic attack (TIA), and cerebral infarction without residual deficits; Z79.899 Other long term (current) drug therapy